=== PATIENT | female | born 1990 | race Caucasian/White ===

== ENCOUNTER 2016-03-17 08:32 | Day surgery (SDC) | payer OTHER ==
[2016-03-09 15:01] VITALS: BMI 45.6
[~2016-03-17 08:32] MED LIST: DEXAMETHASONE SOD PHOSPHATE 10 MG/ML 1 ML VIAL IV ONE; HEPARIN SODIUM,PORCINE 5,000 UNIT/ML 1 ML VIAL SQ ONE; HYDROmorphone 1 MG/ML 1 ML SYRINGE IVP PRN; LACTATED RINGERS 1,000 ML IV SCH; MIDAZOLAM 2 MG/2 ML VIAL IV PRN; SCOPOLAMINE 1.5MG/72HR PATCH TRANSDERM ONE; ceFAZolin 3 GM in SODIUM CHLORIDE 0.9% 100 ML IVPB ONE
[2016-03-17 09:00] VITALS: RESP 18
[2016-03-17] MEDS ORDERED: LIDOCAINE 1% 20 ML VIAL (10MG/ML) FOR IV START INTRADERMA ONE (09:16)
[2016-03-17] MEDS: ONDANSETRON 4 MG/2 ML VIAL IVP ONE ×2 (09:17→14:30)
--- NOTE | 2016-03-17 11:06 | P.GSHP ---
History of Present Illness H&P Date: 03/17/16 Chief Complaint: RUQ pain that radiates to the back Patient is a 26-year-old female who has intermittent right upper quadrant pain that radiates to the back. She was history of Christiano with continued reflux for which she's use Carafate and PPI does not improve there is no jaundice or icterus his her appetite is reduced because of the pain - Constitutional Constitutional: Denies chills, Denies fever - EENT Eyes: denies blurred vision, denies pain Ears, nose, mouth and throat: Denies headache, Denies sore throat - Cardiovascular Cardiovascular: Denies chest pain, Denies shortness of breath - Respiratory Respiratory: Denies cough, Denies 7 - Gastrointestinal Gastrointestinal: Reports as per HPI, Reports abdominal pain, Denies diarrhea, Denies nausea, Denies vomiting - Genitourinary (Female) Genitourinary: Denies dysuria, Denies hematuria Past Medical History Past Medical History: GERD/Reflux Additional Past Medical History / Comment(s): SEASONAL ALLERGIES. History of Any Multi-Drug Resistant Organisms: None Reported Past Surgical History: Tonsillectomy Additional Past Surgical History / Comment(s): CHRISTIANO FUNDOLOPLASTY Past Anesthesia/Blood Transfusion Reactions: Previous Problems w/ Anesthesia Additional Past Anesthesia/Blood Transfusion Reaction / Comment(s): WAS VERY SLOW COMING OUT OF ANESTHESIA AFTER CHRISTIANO Past Psychological History: Anxiety, Bipolar, Depression Smoking Status: Former smoker Past Alcohol Use History: None Reported Additional Past Alcohol Use History / Comment(s): Quit smoking 7 years ago. Smoked approx 1 pack per week. Smoked 2-3 years. Past Drug Use History: None Reported - Past Family History Mother Family Medical History: No Reported History Medications and Allergies Home Medications Medication Instructions Recorded Confirmed Type Loratadine [Loratadine] 10 mg PO DAILY 08/19/14 03/17/16 History Montelukast [Singulair] 10 mg PO DAILY 03/09/16 03/17/16 History clonazePAM [KlonoPIN] 0.5 mg PO BID 03/09/16 03/17/16 History lamoTRIgine [LaMICtal] 100 mg PO DAILY 03/09/16 03/17/16 History Allergies Allergy/AdvReac Type Severity Reaction Status Date / Time latex AdvReac Rash/Hives Verified 03/17/16 09:04 Surgical - Exam Vital Signs Temp Pulse Resp BP Pulse Ox 98.4 F 92 18 117/73 98 03/17/16 08:59 03/17/16 08:59 03/17/16 08:59 03/17/16 08:59 03/17/16 08:59 - General well developed, well nourished, no distress, obese - Eyes PERRL, normal ocular movement - ENT normal pinna, normal nares, normal mucosa, no hearing loss - Neck no masses - Respiratory normal expansion, normal respiratory effort - Cardiovascular Rhythm: regular - Abdomen Abdomen: soft, non tender, surgical scars - Integumentary no rash, no abnormal pigmentation - Neurologic no disoriented, no combative - Psychiatric oriented to time, oriented to person, oriented to place, speech is normal, memory intact Assessment and Plan (1) Chronic RUQ pain Narrative/Plan: The patient presents with chronic recurrent right upper quadrant pain that radiates to the back. The pain is intermittent and severe. Ejection fraction on the HIDA was 51% with reproduction of symptoms. She did have an umbilical study for which an MRCP was done and was unremarkable. Her ultrasound was normal. Due to continued right upper quadrant pain radiating to the back and fatty food intolerance have recommended a left scopic cholecystectomy for biliary dysfunction. The risks and benefits of the procedure were explained to her that there is up to an 80% chance of resolution of symptoms. She understands the risks benefits and is ready to proceed Status: Acute
[2016-03-17] MEDS ORDERED: PROPOFOL 10 MG/ML 20 ML VIAL IV ONE (11:19)
[2016-03-17] MEDS ORDERED: ROCURONIUM BROMIDE 10 MG/ML 10 ML VIAL IV ONE (11:19)
[2016-03-17] MEDS ORDERED: NEOSTIGMINE 1 MG/ML 10 ML VIAL ONE (11:19)
[2016-03-17] MEDS ORDERED: SUCCINYLCHOLINE CHLORIDE VIAL 200 MG/10 ML VIAL IV ONE (11:19)
[2016-03-17] MEDS ORDERED: LACTATED RINGERS 1,000 ML BAG IV ONE (11:19)
[2016-03-17] MEDS ORDERED: ceFAZolin 1,000 MG VIAL ONE (11:19)
[2016-03-17] MEDS ORDERED: LIDOCAINE 1% INJ 10MG/ML (20 ML MDV) ONE (11:19)
[2016-03-17] MEDS ORDERED: GLYCOPYRROLATE 0.2 MG/ML 2 ML VIAL ONE (11:19)
[2016-03-17] MEDS ORDERED: SODIUM CHLORIDE 0.9% 100 ML BAG ONE (11:19)
[2016-03-17] MEDS ORDERED: fentaNYL (PF) 50 MCG/ML 2 ML AMP ONE (11:19)
[2016-03-17] MEDS ORDERED: MIDAZOLAM 2 MG/2 ML VIAL ONE (11:19)
[2016-03-17] MEDS ORDERED: HYDROmorphone (PF) 1 MG/ML ONE (11:19)
[2016-03-17] MEDS ORDERED: BUPIVACAIN-EPI 0.25%-1:200,000 30 ML VIAL SQ ONE (11:51)
[2016-03-17] MEDS ORDERED: BUPIVACAIN-EPI 0.25%-1:200,000 30 ML VIAL IJ ONE (11:51)
[2016-03-17] MEDS ORDERED: LACTATED RINGERS 1,000 ML IV ONE ×2 (12:04)
--- NOTE | 2016-03-17 13:41 | P.OP ---
Date of Procedure: 03/17/16 Preoperative Diagnosis: Chronic right upper quadrant pain Postoperative Diagnosis: Chronic cholecystitis Procedure(s) Performed: Laparoscopic cholecystectomy Anesthesia: APOLONIA Surgeon: Robert Barnes Pathology: other Condition: stable Disposition: PACU Operative Findings: Severe chronic inflammation of the gallbladder and the infundibulum is twisted around the cystic duct. There was a short cystic duct Description of Procedure: The patient is a 26-year-old female who presented with epigastric and upper abdominal pain which localized in the right upper quadrant was tender with guarding in the right upper quadrant Clinical diagnosis of cholecystitis was made. The risks benefits and possible complications of the procedure were discussed in detail and informed consent was obtained. Patient was identified in the preop operating holding area questions were answered and she was taken back to the operating room where she was placed in the supine position. She was given general anesthesia with endotracheal intubation followed by the placement of an orogastric tube and a Elizondo catheter appropriate timeout was called the indication procedure ALLERGIES medications from her prophylaxis were all discussed. Abdomen is prepped and draped in the usual sterile surgical fashion supraumbilical region was infiltrated with quarter percent with local anesthesia and incision was made with 11 blade and Veress needle was introduced . I was unable to enter the abdomen with the help of the Veress needle therefore Optiview technique was used to enter the abdominal cavity through the left upper quadrant. Abdomen insufflated to 18 mmHg. Once that was done a 10 mm epigastric port and two 5 mm right upper quadrant ports were placed.the left upper quadrant 5 mm port was kept in place as well as another 5 mm port in the supraumbilical region. the gallbladder was retracted cephalad and superiorly.The fundus was retracted so as to make the Calot's triangle more visible. A liver retractor was also introduced since the gallbladder was significantly intrahepatic to help with retraction through the left upper quadrant the plan was opened and liver was pushed superiorly so as to open up the medial aspect of the gallbladder. There were dense inflammatory peritoneal adhesions and the gallbladder was distended. There was a redundant infundibulum that draped over and was adhesed around the cystic duct and artery. The adhesions were taken down with the help of blunt dissection and using some electrocautery, skeletonizing the cystic duct and the multiple branches of the cystic artery. Cystic duct was clipped proximally and distally followed by clipping of the branches of the cystic artery following which they were transected sharply with the help of the tish. The gallbladder was then taken off the gallbladder fossa with the help of electrocautery and placed in an Endo Catch bag and removed through the 10 m port site after dilating the port site with a Betsy. The port was replaced and the gallbladder fossa was inspected and hemostasis was secured with the help of electrocautery the abdomen was thoroughly irrigated and sucked dry. Jose M were noted to be in the appropriate position at this time to take procedure was terminated. the 10 mm port was removed and the port site was closed with the help of a Adriano Duque using 0 Vicryl.The Gas was shut off and all the 5 mm ports were removed. The abdomen was thoroughly desufflated. The remaining local anesthesia was infiltrated into the incisions and the incisions were closed with the help of 4-0 Monocryl abdominal applied and the incisions. The patient was extubated and taken to recovery room in stable condition . There were no complications.
[2016-03-17 14:04] VITALS: TEMP 97.4
[2016-03-17 15:42] VITALS: PULSE 97
[2016-03-17 16:08] VITALS: BP 111/61
== END 2016-03-17 17:09 | disposition home or self-care (01) ==
LOC: OR 08:32
PROVIDERS: ATTEND Surgery
DX: K81.1 Chronic cholecystitis (principal); K66.0 Peritoneal adhesions (postprocedural) (postinfection); Z87.891 Personal history of nicotine dependence; F31.9 Bipolar disorder, unspecified; F41.8 Other specified anxiety disorders; F32.9 Major depressive disorder, single episode, unspecified; Z79.899 Other long term (current) drug therapy; Z91.040 Latex allergy status
CPT/HCPCS: 47562; 81025; 88304; J2250; J0330; J1644; J1100; J2710; J2405; J0690; J2001; J3010; J1170; J2704

== ENCOUNTER 2017-08-05 10:37 | Emergency (ER) | payer OTHER ==
[2017-08-05 10:47] VITALS: BP 134/85; PULSE 98; RESP 18; TEMP 97.7
--- NOTE | 2017-08-05 11:16 | ED ---
General Adult HPI - General Chief complaint: Extremity Injury, Upper Stated complaint: fall, left shouler pain Time Seen by Provider: 08/05/17 10:49 Source: patient, RN notes reviewed Mode of arrival: ambulatory Limitations: no limitations - History of Present Illness Initial comments: Patient 27-year-old female presents emergency room today with chief complaint of a fall that occurred just prior to arrival. She doesn't that she fell when she walked outside slipping on a wet deck landing on the left shoulder. She does admit that she had injury proximal 6 months ago as well with similar injury. She states she's had difficulty with range of motion of the left shoulder since that fall initially. She states that since she's had very limited range of motion due to increased pain today in the left shoulder. States worse with any movement. Denies any head injury or loss conscious. Denies any other complaints. Patient denies any recent fever, chills, shortness of breath, chest pain, back pain, abdominal pain, nausea or vomiting, numbness or tingling, dysuria or hematuria, constipation or diarrhea, headaches or visual changes, or any other complaints. - Related Data Home Medications Medication Instructions Recorded Confirmed No Known Home Medications [No 08/05/17 08/05/17 Known Home Medications] Allergies Allergy/AdvReac Type Severity Reaction Status Date / Time latex AdvReac Rash/Hives Verified 08/05/17 10:43 Review of Systems ROS Statement: Those systems with pertinent positive or pertinent negative responses have been documented in the HPI. ROS Other: All systems not noted in ROS Statement are negative. Past Medical History Past Medical History: GERD/Reflux Additional Past Medical History / Comment(s): SEASONAL ALLERGIES. History of Any Multi-Drug Resistant Organisms: None Reported Past Surgical History: Adenoidectomy, Cholecystectomy, Tonsillectomy Additional Past Surgical History / Comment(s): CHRISTIANO FUNDOLOPLASTY Past Anesthesia/Blood Transfusion Reactions: Previous Problems w/ Anesthesia Additional Past Anesthesia/Blood Transfusion Reaction / Comment(s): WAS VERY SLOW COMING OUT OF ANESTHESIA AFTER CHRISTIANO Past Psychological History: Anxiety, Bipolar, Depression Smoking Status: Current every day smoker Past Alcohol Use History: None Reported Past Drug Use History: None Reported - Past Family History Mother Family Medical History: No Reported History General Exam - General Exam Comments Initial Comments: General: The patient is awake and alert, in no distress, and does not appear acutely ill. Neck: The neck is supple, there is no tenderness or JVD. Cardiovascular: There is a regular rate and rhythm. No murmur, rub or gallop is appreciated. Respiratory: Lungs are clear to auscultation, respirations are non-labored, breath sounds are equal. No wheezes, stridor, rales, or rhonchi. Musculoskeletal: Patient has full range of motion of left hand, wrist, elbow. No bony tenderness in these areas. It is tender palpation greater over the anterior aspect of left shoulder than the posterior. She is very limited range of motion of the shoulder due to pain. No tenderness to cervical, thoracic spine. No step-offs deformities appreciated. Mild tenderness mid shaft and laterally of the left clavicle on palpation. Radial pulse 2+. Neurological: A&O x 3. CN II-XII intact, There are no obvious motor or sensory deficits. Coordination appears grossly intact. Speech is normal. Skin: Skin is warm and dry and no rashes or lesions are noted. Psychiatric: Normal mood and affect. Limitations: no limitations Course Vital Signs 08/05/17 10:40 Temperature 97.7 F Pulse Rate 98 Respiratory 18 Rate Blood Pressure 134/85 O2 Sat by Pulse 99 Oximetry Medical Decision Making - Medical Decision Making Patient's x-rays reviewed are negative for any acute fracture dislocation. Results were discussed with the patient. Advised following up with the orthopedic doctor. Disposition Clinical Impression: Shoulder injury Disposition: HOME SELF-CARE Condition: Good Instructions: Rotator Cuff Injury (ED) Additional Instructions: Please use medication as discussed. Please follow-up with orthopedics over the next 2-5 days. Please return to emergency room if the symptoms increase or worsen or for any other concerns. Is patient prescribed a controlled substance at d/c from ED?: No Referrals: None,Stated [Primary Care Provider] - 1-2 days Shkaeel Ziegler DO [Doctor of Osteopathic Medicine] - 1-2 days Time of Disposition: 11:55
--- NOTE | 2017-08-05 11:34 | XR ---
EXAMINATION TYPE: XR clavicle LT, XR shoulder complete LT DATE OF EXAM: 08/05/2017 COMPARISON: 08/05/2017 HISTORY: Left clavicle pain after fall TECHNIQUE: 2 views of the left clavicle were obtained. 3 views of the left shoulder were obtained. FINDINGS: There is no acute fracture/dislocation evident in the left shoulder. The acromioclavicula r and glenohumeral joint spaces appear within normal limits. The visualized ribs are intact and unre markable. No evidence of acute fracture or dislocation of the left clavicle. IMPRESSION: There is no acute fracture or dislocation in the left shoulder or clavicle.
== END 2017-08-05 12:31 | disposition home or self-care (01) ==
LOC: EC 10:37
DX: S49.92XA Unspecified injury of left shoulder and upper arm, initial encounter (principal); F17.200 Nicotine dependence, unspecified, uncomplicated; Z91.040 Latex allergy status; W01.0XXA Fall on same level from slipping, tripping and stumbling without subsequent striking against object, initial encounter; Y93.01 Activity, walking, marching and hiking; Y92.89 Other specified places as the place of occurrence of the external cause
CPT/HCPCS: 99283

== ENCOUNTER 2017-08-27 00:12 | Emergency (ER) | payer OTHER ==
[2017-08-27 00:17] VITALS: BP 139/85; PULSE 112; RESP 16; TEMP 98.8
[2017-08-27] MEDS ORDERED: SULFAMETH-TMP DS STARTER PACK 2 TAB BTL PO STA (00:29)
--- NOTE | 2017-08-27 00:33 | ED ---
Skin/Abscess/FB HPI - General Chief complaint: Skin/Abscess/Foreign Body Stated complaint: Abscess Time Seen by Provider: 08/27/17 00:25 Source: patient, RN notes reviewed Mode of arrival: ambulatory Limitations: no limitations - History of Present Illness Initial comments: 27-year-old female presented from chief complaint of abscess towards her right thigh, buttocks region. It started 3 days ago and just started draining today when she states there is purulent drainage and foul order. Patient reports no fever no chills. Denies any pain in her rectum denies any pain with bowel movements. Patient states that she's had a history of these in the usually rupture and clear up either home. Patient has not taken any antibiotics. - Related Data Previous Rx's Medication Instructions Recorded Hydrocodone/Acetaminophen [[place] 1 tab PO Q6HR PRN #12 tab 08/27/17 5-325] Ibuprofen [Motrin] 600 mg PO Q8HR PRN #30 tab 08/27/17 Sulfamethox-Tmp 800-160Mg [Bactrim 1 each PO Q12HR #20 tab 08/27/17 Ds] Allergies Allergy/AdvReac Type Severity Reaction Status Date / Time No Known Allergies Allergy Verified 08/27/17 00:17 Review of Systems ROS Statement: Those systems with pertinent positive or pertinent negative responses have been documented in the HPI. ROS Other: All systems not noted in ROS Statement are negative. Past Medical History Past Medical History: GERD/Reflux Additional Past Medical History / Comment(s): SEASONAL ALLERGIES. History of Any Multi-Drug Resistant Organisms: None Reported Past Surgical History: Adenoidectomy, Cholecystectomy, Tonsillectomy Additional Past Surgical History / Comment(s): CHRISTIANO FUNDOLOPLASTY Past Anesthesia/Blood Transfusion Reactions: Previous Problems w/ Anesthesia Additional Past Anesthesia/Blood Transfusion Reaction / Comment(s): WAS VERY SLOW COMING OUT OF ANESTHESIA AFTER CHRISTIANO Past Psychological History: Anxiety, Bipolar Smoking Status: Current every day smoker Past Alcohol Use History: None Reported Past Drug Use History: None Reported - Past Family History Mother Family Medical History: No Reported History General Exam Limitations: no limitations General appearance: alert, in no apparent distress Head exam: Present: atraumatic, normocephalic, normal inspection Respiratory exam: Present: normal lung sounds bilaterally. Absent: respiratory distress, wheezes, rales, rhonchi, stridor Cardiovascular Exam: Present: regular rate, normal rhythm, normal heart sounds. Absent: systolic murmur, diastolic murmur, rubs, gallop, clicks Skin exam: Present: warm, dry, intact, normal color, other (Right thigh region there is firm area approximately 1 cm minimal erythema with an opening and drainage noted). Absent: rash Course Vital Signs 08/27/17 00:14 Temperature 98.8 F Pulse Rate 112 H Respiratory 16 Rate Blood Pressure 139/85 O2 Sat by Pulse 99 Oximetry Medical Decision Making - Medical Decision Making 27-year-old female presents for right thigh abscess. Patient has an open draining abscess at this time there is some area of tenderness and nonfluctuant area. Patient instructed to do warm compresses will be started on Bactrim and given a short prescription of pain medication. Disposition Clinical Impression: Abscess of right thigh Disposition: HOME SELF-CARE Condition: Stable Instructions: Abscess (ED) Additional Instructions: Please return to the Emergency Department if symptoms worsen or any other concerns. Prescriptions: Hydrocodone/Acetaminophen [[place] 5-325] 1 tab PO Q6HR PRN #12 tab PRN Reason: Pain Ibuprofen [Motrin] 600 mg PO Q8HR PRN #30 tab PRN Reason: Pain Sulfamethox-Tmp 800-160Mg [Bactrim Ds] 1 each PO Q12HR #20 tab Is patient prescribed a controlled substance at d/c from ED?: Yes When asked, does pt state using other controlled substances?: No If prescribed controlled substance>3 days was MAPS reviewed?: Prescribed <3 Days If opioid is for acute pain is fill amount 7 days or less?: Yes If Rx opioid, was Start Talking consent form obtained?: Yes Referrals: None,Stated [Primary Care Provider] - 1-2 days Leia Sewell MD [STAFF PHYSICIAN] - 1-2 days Time of Disposition: 00:33
== END 2017-08-27 00:47 | disposition home or self-care (01) ==
LOC: EC 00:12
DX: L02.415 Cutaneous abscess of right lower limb (principal); F17.200 Nicotine dependence, unspecified, uncomplicated
CPT/HCPCS: 99282

== ENCOUNTER → 2018-02-12 | Outpatient (CLI) | payer OTHER ==
--- NOTE | 2018-02-12 09:36 | CT ---
EXAMINATION TYPE: CT abdomen pelvis w con DATE OF EXAM: 02/12/2018 COMPARISON: 11/10/2015 HISTORY: incarcerated ventral hernia CT DLP: 2528.7 mGycm Automated exposure control for dose reduction was used. CONTRAST: CT scan of the abdomen pelvis is performed with IV Contrast, patient injected with 100 mL of Isovue 3 00. FINDINGS- LUNG BASES- No significant abnormality is appreciated. LIVER/GB-postcholecystectomy changes. PANCREAS- No gross abnormality is seen. SPLEEN- No gross abnormality is seen. ADRENALS- No gross abnormality is seen. KIDNEYS/BLADDER- no hydronephrosis nephrolithiasis or renal mass. BOWEL-postsurgical changes compatible the patient's reported history noted. No evidence of bowel obst ruction.. LYMPH NODES- No greater than 1cm abdominal or pelvic lymph nodes areappreciated. OSSEOUS STRUCTURES- No significant abnormality is seen. Slight curvature of the spine noted. OTHER- small fat-containing periumbilical hernia. Ovarian follicle or cysts incidentally noted. IMPRESSION- 1. Postoperative changes.
--- NOTE | 2018-02-12 10:42 | FL ---
EXAMINATION TYPE: FL barium swallow DATE OF EXAM: 02/12/2018 CLINICAL HISTORY: Reflux TECHNIQUE: A double contrast esophagram is performed utilizing air and barium. A total of 25 second s of fluoroscopic time was utilized during procedure. 13 images submitted. COMPARISON: None FINDINGS: The esophagus shows normal motility and emptying into the stomach. No evidence of hiatal h ernia or stricture noted. No significant gastroesophageal reflux was seen during real time performanc e of this study. IMPRESSION: No significant abnormality is seen to account for patient's symptoms.
== END | disposition home or self-care (01) ==
LOC: RADCTMAIN 06:43
PROVIDERS: ATTEND Surgery Plastic and Reconstructive Surgery
DX: K21.9 Gastro-esophageal reflux disease without esophagitis (principal); K43.6 Other and unspecified ventral hernia with obstruction, without gangrene; Z90.49 Acquired absence of other specified parts of digestive tract
CPT/HCPCS: 74220; 74177; Q9967

== ENCOUNTER 2018-04-13 13:43 | Inpatient (IN) | payer OTHER ==
[2018-04-13] MEDS ORDERED: IPRATROPIUM-ALBUTEROL 3 ML NEB INHALATION STA (14:01)
--- NOTE | 2018-04-13 14:24 | ED ---
SOB HPI - General Source: patient, RN notes reviewed Mode of arrival: ambulatory Limitations: no limitations <Gabe Rosales - Last Filed: 04/13/18 15:32> <Donavon Greene - Last Filed: 04/13/18 15:42> - General Chief Complaint: Shortness of Breath Stated Complaint: Pneumonia,syncope Time Seen by Provider: 04/13/18 13:49 - History of Present Illness Initial Comments: 28-year-old female sent emergency Department chief complaint cough congestion. Patient states that she's been short of breath last 4 days or so. Patient was seen by PCP and was given azithromycin for walking pneumonia. Patient has no history of asthma or COPD. Patient states that she's noticed that she's had some wheezing increased shortness of breath denies any leg pain, leg swelling no recent traveling. Denies any chest pain. Patient states that she felt very dizzy earlier. (Gabe Rosales) - Related Data Home Medications Medication Instructions Recorded Confirmed Azithromycin [Zithromax Z-pack] See Taper PO DAILY 04/13/18 04/13/18 Allergies Allergy/AdvReac Type Severity Reaction Status Date / Time No Known Allergies Allergy Verified 04/13/18 14:03 Review of Systems ROS Other: All systems not noted in ROS Statement are negative. <Gabe Rosales - Last Filed: 04/13/18 15:32> ROS Other: All systems not noted in ROS Statement are negative. <Donavon Greene - Last Filed: 04/13/18 15:42> ROS Statement: Those systems with pertinent positive or pertinent negative responses have been documented in the HPI. Past Medical History Past Medical History: GERD/Reflux Additional Past Medical History / Comment(s): SEASONAL ALLERGIES. History of Any Multi-Drug Resistant Organisms: None Reported Past Surgical History: Adenoidectomy, Cholecystectomy, Tonsillectomy Additional Past Surgical History / Comment(s): CHRISTIANO FUNDOLOPLASTY Past Anesthesia/Blood Transfusion Reactions: Previous Problems w/ Anesthesia Additional Past Anesthesia/Blood Transfusion Reaction / Comment(s): WAS VERY SLOW COMING OUT OF ANESTHESIA AFTER CHRISTIANO Past Psychological History: Anxiety, Bipolar Smoking Status: Current every day smoker Past Alcohol Use History: None Reported Past Drug Use History: None Reported - Past Family History Mother Family Medical History: No Reported History <Gabe Rosales - Last Filed: 04/13/18 15:32> General Exam Limitations: no limitations General appearance: alert, in no apparent distress Head exam: Present: atraumatic, normocephalic, normal inspection Eye exam: Present: normal appearance, PERRL, EOMI. Absent: scleral icterus, conjunctival injection, periorbital swelling ENT exam: Present: normal exam, mucous membranes moist Neck exam: Present: normal inspection. Absent: tenderness, meningismus, lymphadenopathy Respiratory exam: Present: wheezes. Absent: normal lung sounds bilaterally, respiratory distress, rales, rhonchi, stridor Cardiovascular Exam: Present: regular rate, normal rhythm, normal heart sounds. Absent: systolic murmur, diastolic murmur, rubs, gallop, clicks Neurological exam: Present: alert, oriented X3, CN II-XII intact Skin exam: Present: warm, dry, intact, normal color. Absent: rash <Gabe Rosales - Last Filed: 04/13/18 15:32> Course <Gabe Rosales - Last Filed: 04/13/18 15:32> <Donavon Greene - Last Filed: 04/13/18 15:42> Vital Signs 04/13/18 04/13/18 04/13/18 13:48 13:53 14:29 Temperature 99.0 F Pulse Rate 97 98 Respiratory 18 22 Rate Blood Pressure 149/87 O2 Sat by Pulse 98 Oximetry 04/13/18 14:37 Temperature Pulse Rate 92 Respiratory Rate Blood Pressure O2 Sat by Pulse Oximetry - Reevaluation(s) Reevaluation #1: 04/13/18 15:41 Patient reevaluated by myself, Dr. Greene. Patient resting comfortably in bed. Patient still feels short of breath and does have continued wheezing. Patient is updated on results. Case was discussed in detail with [facility], [place] physician, Dr. heck, who will admit covering for Dr. Orellana, who admits for Dr. Ngo. (Donavon Greene) Medical Decision Making <Gabe Rosales - Last Filed: 04/13/18 15:32> <Donavon Greene - Last Filed: 04/13/18 15:42> - Medical Decision Making 20-year-old female presents for cough congestion. Patient did have chest x-ray shows evidence of pneumonia. Patient has failed outpatient treatment for pneumonia will be admitted for IV advised, repeat treatments. (Gabe Rosales) Disposition <Gabe Rosales - Last Filed: 04/13/18 15:32> <Donavon Greene - Last Filed: 04/13/18 15:42> Clinical Impression: Pneumonia Disposition: ADMITTED IP TO THIS HOSP Condition: Stable Additional Instructions: Please return to the Emergency Department if symptoms worsen or any other concerns. Referrals: Sal Ngo MD [Primary Care Provider] - 1-2 days
--- NOTE | 2018-04-13 15:08 | XR ---
EXAMINATION TYPE: XR chest 2V DATE OF EXAM: 04/13/2018 COMPARISON: NONE HISTORY: Cough and shortness of breath TECHNIQUE: Frontal and lateral views of the chest are obtained. FINDINGS: Retrocardiac airspace disease is present. There is no pleural effusion or pneumothorax see n. The cardiac silhouette size is within normal limits. There is a spinal curvature, patient is rota amber. The osseous structures are intact. IMPRESSION: Findings compatible with probable left lower lobe pneumonia. Follow-up to resolution.
[2018-04-13] MEDS ORDERED: predniSONE 20 MG TAB PO STA (15:24)
[2018-04-13] MEDS ORDERED: ACETAMINOPHEN TAB 325 MG TAB PO STA (15:24)
[2018-04-13] MEDS ORDERED: cefTRIAXone 1,000 MG VIAL (IM USE) IM STA (15:24)
[2018-04-13] MEDS ORDERED: methylPREDNISolone SOD SUCCI 125 MG/2 ML VIAL IV STA (15:36)
[2018-04-13] MEDS ORDERED: AZITHROMYCIN 500 MG in SODIUM CHLORIDE 0.9% 250 ML IVPB STA ×2 (15:36→15:39)
[2018-04-13] MEDS ORDERED: PNEUMONIA PROTOCOL UTILIZED 1 EACH MISC PO PRN (15:39)
[2018-04-13 16:36] LABS: ALT 54 U/L (9-52); AST 39 U/L (14-36); Albumin 4.4 g/dL (3.5-5.0); Alkaline Phosphatase 99 U/L (38-126); Anion Gap 9 mmol/L; Blood Urea Nitrogen 11 mg/dL (7-17); Calcium 9.5 mg/dL (8.4-10.2); Carbon Dioxide 23 mmol/L (22-30); Chloride 105 mmol/L (98-107); Glucose 93 mg/dL (74-99); Sodium 137 mmol/L (137-145); Total Bilirubin 0.4 mg/dL (0.2-1.3); Total Protein 7.7 g/dL (6.3-8.2)
[2018-04-13 16:41] LABS: Basophils # (A) 0.1 k/uL (0-0.2); Basophils % (A) 1 %; Eosinophils # (A) 0.1 k/uL (0-0.7); Eosinophils % (A) 1 %; HCT 40.6 % (34.0-46.0); HGB 13.6 gm/dL (11.4-16.0); Lymphocytes # (A) 1.3 k/uL (1.0-4.8); Lymphocytes % (A) 21 %; MCH 29.2 pg (25.0-35.0); MCHC 33.5 g/dL (31.0-37.0); MCV 87.3 fL (80.0-100.0); Mean Platelet Volume 7.1; Monocytes # (A) 0.5 k/uL (0-1.0); Monocytes % (A) 8 %; Neutrophils # (A) 4.1 k/uL (1.3-7.7); Neutrophils % (A) 65 %; Platelet Count 277 k/uL (150-450); RBC 4.65 m/uL (3.80-5.40); RDW 14.1 % (11.5-15.5); WBC 6.3 k/uL (3.8-10.6)
[2018-04-13 17:02] VITALS: BMI 50.9
[2018-04-13] MEDS: IPRATROPIUM-ALBUTEROL 3 ML NEB INHALATION SCH ×2 (17:17→20:20)
[2018-04-13] MEDS ORDERED: NALOXONE 0.4 MG/ML 1 ML VIAL IV PRN (17:28)
--- NOTE | 2018-04-13 17:28 | P.HPIM ---
History of Present Illness H&P Date: 04/13/18 The patient is a 28-year-old female with no significant PMH who presented to the ED for 1 week of cough productive of yellow-brown phlegm, wheezing, shortness of breath, and chest tightness. The patient notes that her roommate had a cough for the week prior to the onset of her symptoms. The patient denied a history of asthma and notes that she has never had such symptoms before. She endorse an episode of subjective fever though denied abdominal pain , nausea, vomiting, diarrhea, recent travel, calf pain, lower extremity swelling , or headache. 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 In the ED, the patient underwent a conference workup WBC count 6.3, hemoglobin 13.6, platelets 277, creatinine 0.66. Influenza testing is pending. She underwent a chest x-ray showed a probable left lower lobe pneumonia. She received Solu-Medrol 125 mg once, azithromycin, ceftriaxone, and DuoNeb's. She is being admitted to the medicine service for community-acquired pneumonia with reactive bronchitis. Review of Systems Pertinent positives and negatives as discussed in HPI, a complete review of systems was performed and all other systems are negative. Past Medical History Past Medical History: GERD/Reflux Additional Past Medical History / Comment(s): SEASONAL ALLERGIES. hiatal hernia( sx done), "dx with narcalepsy but still nees more testing", eczema, in past- head injury(hit head on metal saftey bar of tractor) History of Any Multi-Drug Resistant Organisms: None Reported Past Surgical History: Adenoidectomy, Cholecystectomy, Tonsillectomy Additional Past Surgical History / Comment(s): CHRISTIANO FUNDOLOPLASTY, egd Past Anesthesia/Blood Transfusion Reactions: Previous Problems w/ Anesthesia Additional Past Anesthesia/Blood Transfusion Reaction / Comment(s): WAS VERY SLOW COMING OUT OF ANESTHESIA AFTER CHRISTIANO Smoking Status: Light tobacco smoker - Past Family History Father Family Medical History: Myocardial Infarction (CT) Additional Family Medical History / Comment(s): gm had ovarian cancer Mother Family Medical History: Thyroid Disorder Additional Family Medical History / Comment(s): scoliosis. mom's sister had breast cancer Medications and Allergies Home Medications Medication Instructions Recorded Confirmed Type Azithromycin [Zithromax Z-pack] See Taper PO DAILY 04/13/18 04/13/18 History Allergies Allergy/AdvReac Type Severity Reaction Status Date / Time No Known Allergies Allergy Verified 04/13/18 14:03 Physical Exam Vitals: Vital Signs Temp Pulse Resp BP Pulse Ox 04/13/18 17:04 98.2 F 85 18 126/97 100 04/13/18 16:45 98.2 F 04/13/18 15:48 98.2 F 04/13/18 15:45 85 18 126/97 100 04/13/18 14:37 92 04/13/18 14:29 98 04/13/18 13:53 22 04/13/18 13:48 99.0 F 97 18 149/87 98 Intake and Output 04/13/18 04/13/18 04/13/18 06:59 14:59 22:59 Intake Total 150 Balance 150 Intake: Amount of Fluid Infused ( 150 ml) Other: Weight 151.908 kg General: [non toxic], [no distress], [appears at stated age], morbidly obese Derm: [no unusual rashes/lesions] [no unusual ecchymoses], [warm], [dry] Head: [atraumatic], [normocephalic], [symmetric] Eyes: [EOMI], [no lid lag], [anicteric sclera], [pupils equal round reactive to light] ENT: [Nose and ears atraumatic], [no thrush], [no pharyngeal erythema] Neck: [No thyromegaly], [no cervical lymphadenopathy], [trachea midline], [ supple] Mouth: [no lip lesion], [mucus membranes moist] Cardiovascular: [S1S2 reg], [no murmur], [positive posterior tibial pulse bilateral], [no edema], [capillary refill less than 2 seconds] Lungs: Expiratory wheezing diffusely, [no rhonchi, no rales] , [no accessory muscle use] Abdominal: [soft], [ nontender to palpation], [no guarding], [no appreciable organomegaly], [normal bowel sounds] Ext: [no gross muscle atrophy], [muscle strength 5 out of 5 in all 4 extremities grossly], [no contractures], Neuro: [ CN II-XI grossly intact], [light touch intact all 4 extremities], [ finger to nose within normal limits], Psych: [Alert], [oriented], [appropriate affect] Results CBC & Chem 7: 04/13/18 16:17 04/13/18 16:17 Labs: Abnormal Lab Results - Last 24 Hours (Table) 04/13/18 Range/Units 16:17 AST 39 H (14-36) U/L ALT 54 H (9-52) U/L Assessment and Plan Plan: Reactive bronchitis in setting of community acquired pneumonia -Continue with IV ceftriaxone and azithromycin -Continue with IV fluids -DuoNeb, oral prednisone -Follow up influenza testing -Follow-up blood and sputum cultures Severe morbid obesity -Will need outpatient dietitian follow-up DVT//GI prophylaxis -Heparin -Protonix The patient is admitted with an anticipated greater than 2 midnight stay for evaluation of community for pneumonia. CODE STATUS: Full code Discussed with: Patient Anticipated discharge date: 04/15/[address]: Home A total of 45 minutes was spent on the care of this complex patient more than 50 % of the time was spent in counseling and care coordination.
[2018-04-13] MEDS: SODIUM CHLORIDE 0.9% 1,000 ML IV SCH (17:53)
[2018-04-14] MEDS: ALBUTEROL NEBULIZED 2.5 MG/3 ML INHALATION PRN ×3 (00:55→23:38)
[2018-04-14] MEDS: SODIUM CHLORIDE 0.9% 1,000 ML IV SCH ×2 (05:11→14:23)
[2018-04-14] MEDS: IPRATROPIUM-ALBUTEROL 3 ML NEB INHALATION SCH ×4 (07:00→19:45)
--- NOTE | 2018-04-14 07:04 | XR ---
EXAMINATION TYPE: XR chest 2V DATE OF EXAM: 04/14/2018 COMPARISON: Chest x-ray from yesterday. HISTORY: Pneumonia progress study. TECHNIQUE: Frontal and lateral views of the chest are obtained. FINDINGS: Evaluation slightly suboptimal due to patient's large body habitus. Persistent retrocardia c opacity is identified. There is no new focal air space opacity, pleural effusion, or pneumothorax s een. The cardiac silhouette size is upper limits of normal. S-shaped scoliosis is redemonstrated. Ch olecystectomy clips are noted on lateral view. IMPRESSION: Suboptimal study with persistent retrocardiac acute infiltrate and/or atelectasis. No ne w infiltrate is seen.
[2018-04-14] MEDS: predniSONE 20 MG TAB PO SCH (08:35)
[2018-04-14] MEDS: ENOXAPARIN 40 MG/0.4 ML SYRINGE SQ SCH (08:35)
[2018-04-14] MEDS: AZITHROMYCIN 500 MG TAB PO SCH (08:35)
[2018-04-14 11:34] LABS: Basophils % (A) 0 %; Eosinophils % (A) 0 %; HCT 38.5 % (34.0-46.0); HGB 12.8 gm/dL (11.4-16.0); Lymphocytes # (A) 0.9 k/uL (1.0-4.8); Lymphocytes % (A) 7 %; MCH 28.9 pg (25.0-35.0); MCHC 33.2 g/dL (31.0-37.0); Mean Platelet Volume 7.7; Monocytes # (A) 0.6 k/uL (0-1.0); Monocytes % (A) 5 %; Neutrophils # (A) 10.7 k/uL (1.3-7.7); Neutrophils % (A) 87 %; Platelet Count 295 k/uL (150-450); RBC 4.42 m/uL (3.80-5.40); RDW 14.2 % (11.5-15.5); WBC 12.3 k/uL (3.8-10.6)
--- NOTE | 2018-04-14 15:15 | P.PN ---
Subjective Progress Note Date: 04/14/18 Patient was seen and examined the bedside. She was that her breathing is improved from yesterday though she continues to have wheezing. She otherwise denied fever, chills, nausea, vomiting, chest pain, or dizziness. Objective - Vital Signs Vital signs: Vital Signs Temp 98.3 F 04/14/18 06:02 Pulse 94 04/14/18 11:13 Resp 18 04/14/18 06:02 BP 143/70 04/14/18 06:02 Pulse Ox 96 04/14/18 06:02 Intake & Output 04/13/18 04/14/18 04/14/18 18:59 06:59 18:59 Intake Total 150 320 Balance 150 320 Weight 151.908 kg Intake: Amount of Fluid Infused ( 150 ml) Oral 320 Other: Voiding Method Toilet # Voids 1 - Exam General: Non-toxic, in no acute distress, appears stated age, morbidly obese HEENT: NC/AT, anicteric sclerae, moist conjunctiva, no lid-lag, PERRLA Cardiovascular: S1/S2 wnl, no murmurs, rubs, or gallops Lungs: Diffuse wheezing bilaterally, normal respiratory effort, no accessory muscle use Abdominal: Soft, non-tender, non-distended, no guarding, rebound, or rigidity Skin: Warm, dry Extremities: No edema or contractures Psychiatric: Alert and oriented to person, place and time, appropriate affect Neuro: CN II-XII grossly intact, Strength 5/5 in all 4 extremities, Speech intact, Sensation to light touch grossly intact throughout - Labs CBC & Chem 7: 04/14/18 11:14 04/13/18 16:17 Labs: Abnormal Lab Results - Last 24 Hours (Table) 04/13/18 04/14/18 Range/Units 16:17 11:14 WBC 12.3 H (3.8-10.6) k/uL Neutrophils # 10.7 H (1.3-7.7) k/uL Lymphocytes # 0.9 L (1.0-4.8) k/uL AST 39 H (14-36) U/L ALT 54 H (9-52) U/L Assessment and Plan Plan: Reactive airway disease in setting of community acquired pneumonia -Continue with IV ceftriaxone and azithromycin -Continue with IV fluids -DuoNeb, oral prednisone -Influenza negative -Follow-up blood and sputum cultures Severe morbid obesity -Will need outpatient dietitian follow-up DVT//GI prophylaxis -Heparin -Protonix The patient is admitted with an anticipated greater than 2 midnight stay for evaluation of community for pneumonia. CODE STATUS: Full code Discussed with: Patient Anticipated discharge date: 04/15/[address]: Home A total of 45 minutes was spent on the care of this complex patient more than 50 % of the time was spent in counseling and care coordination.
[2018-04-14] MEDS: MELATONIN 3 MG TABLET PO SCH (23:27)
[2018-04-15] MEDS: SODIUM CHLORIDE 0.9% 1,000 ML IV SCH ×3 (04:39→22:25)
[2018-04-15] MEDS: ENOXAPARIN 40 MG/0.4 ML SYRINGE SQ SCH (07:29)
[2018-04-15] MEDS: AZITHROMYCIN 500 MG TAB PO SCH (07:29)
[2018-04-15] MEDS: IPRATROPIUM-ALBUTEROL 3 ML NEB INHALATION SCH ×4 (07:29→20:42)
[2018-04-15] MEDS: predniSONE 20 MG TAB PO SCH (07:29)
--- NOTE | 2018-04-15 19:38 | P.PN ---
Subjective Progress Note Date: 04/15/18 Patient was seen and examined the bedside. She was that her breathing continues to improve though she feels that she is not back at her baseline as of yet. She denied chest pain, nausea, vomiting, fever, or chills. She continues to have some wheezing Objective - Vital Signs Vital signs: Vital Signs Temp 98.6 F 04/15/18 14:28 Pulse 113 H 04/15/18 17:04 Resp 18 04/15/18 14:28 BP 127/71 04/15/18 14:28 Pulse Ox 98 04/15/18 16:55 Intake & Output 04/15/18 04/15/18 04/16/18 06:59 18:59 06:59 Intake Total 300 Balance 300 Intake: Oral 300 Other: # Voids 1 3 - Exam General: Non-toxic, in no acute distress, appears stated age, morbidly obese HEENT: NC/AT, anicteric sclerae, moist conjunctiva, no lid-lag, PERRLA Cardiovascular: S1/S2 wnl, no murmurs, rubs, or gallops Lungs: End expiratory wheezing with some scattered coarse breath sounds, normal respiratory effort, no accessory muscle use Abdominal: Soft, non-tender, non-distended, no guarding, rebound, or rigidity Skin: Warm, dry Extremities: No edema or contractures Psychiatric: Alert and oriented to person, place and time, appropriate affect Neuro: CN II-XII grossly intact, Strength 5/5 in all 4 extremities, Speech intact, Sensation to light touch grossly intact throughout - Labs CBC & Chem 7: 04/14/18 11:14 04/13/18 16:17 Labs: Microbiology - Last 24 Hours (Table) 04/13/18 16:27 Blood Culture - Preliminary Blood No Growth after 48 hours 04/14/18 16:03 Gram Stain - Final Gastric Aspirate Sputum Culture - Final Assessment and Plan Plan: Reactive airway disease in setting of community acquired pneumonia -Continue with IV ceftriaxone and azithromycin -Continue with IV fluids -DuoNeb, oral prednisone -Influenza negative -Follow-up blood and sputum cultures Severe morbid obesity -Will need outpatient dietitian follow-up DVT//GI prophylaxis -Heparin -No indication for GI prophylaxis Discussed with: Patient Anticipated discharge date: 04/16/[address]: Home A total of 35 minutes was spent on the care of this complex patient more than 50 % of the time was spent in counseling and care coordination.
[2018-04-15] MEDS: methylPREDNISolone SOD SUCCI 125 MG/2 ML VIAL IV SCH (21:23)
[2018-04-15] MEDS: MELATONIN 3 MG TABLET PO SCH (21:24)
[2018-04-15] MEDS: ALBUTEROL NEBULIZED 2.5 MG/3 ML INHALATION PRN (23:56)
[2018-04-16] MEDS: SODIUM CHLORIDE 0.9% 1,000 ML IV SCH (05:34)
[2018-04-16] MEDS: methylPREDNISolone SOD SUCCI 125 MG/2 ML VIAL IV SCH ×3 (06:30→11:18)
[2018-04-16 07:43] LABS: HCT 39.3 % (34.0-46.0); HGB 12.9 gm/dL (11.4-16.0); MCH 28.9 pg (25.0-35.0); MCHC 32.8 g/dL (31.0-37.0); Platelet Count 335 k/uL (150-450); RBC 4.47 m/uL (3.80-5.40); RDW 14.2 % (11.5-15.5); WBC 12.8 k/uL (3.8-10.6)
[2018-04-16] MEDS: AZITHROMYCIN 500 MG TAB PO SCH (07:57)
[2018-04-16] MEDS: ENOXAPARIN 40 MG/0.4 ML SYRINGE SQ SCH (07:57)
[2018-04-16] MEDS: IPRATROPIUM-ALBUTEROL 3 ML NEB INHALATION SCH ×4 (08:04→19:56)
[2018-04-16] MEDS ORDERED: ACETAMINOPHEN TAB 325 MG TAB PO PRN (10:26)
--- NOTE | 2018-04-16 10:35 | XR ---
EXAMINATION TYPE: XR chest 1V portable DATE OF EXAM: 04/16/2018 COMPARISON: 04/14/2018 HISTORY: Cough possible pneumonia TECHNIQUE: Single frontal view of the chest is obtained. FINDINGS: Heart is prominent. No pneumothorax or pleural effusion. Limited inspiration. Subsegmental changes medial aspect right lower lobe. IMPRESSION: Right basilar subsegmental atelectasis or infiltrate.
[2018-04-16 11:54] LABS: Glucose,Whole Blood 122 mg/dL (75-99)
[2018-04-16] MEDS: INSULIN ASPART 100 UNIT/ML 1 ML 10 ML VIAL SQ SCH ×3 (12:22→21:39)
[2018-04-16 17:02] LABS: Glucose,Whole Blood 122 mg/dL (75-99)
[2018-04-16 20:44] LABS: Glucose,Whole Blood 141 mg/dL (75-99)
[2018-04-16] MEDS: methylPREDNISolone SOD SUCCI 40 MG/ML 1 ML VIAL IV SCH (21:28)
[2018-04-16] MEDS: MELATONIN 3 MG TABLET PO SCH (21:30)
[2018-04-17 07:36] LABS: Glucose,Whole Blood 109 mg/dL (75-99)
--- NOTE | 2018-04-17 07:46 | PN ---
PROGRESS NOTE DATE OF SERVICE: 04/16/2018 PRESENTING COMPLAINT: Cough. INTERVAL HISTORY: Patient admitted with pneumonia and secondary bronchospasm. Breathing is getting better. Did tolerate a diet. Have a bowel movement. Up to go to the bathroom. Wheezing is improved. Some yellow sputum is still present. REVIEW OF SYSTEMS: Done for constitutional, cardiovascular, GI, pulmonary; relevant findings as above. CURRENT MEDICATIONS: Current medications are reviewed that include IV ceftriaxone and Zithromax. PHYSICAL EXAMINATION: On examination, temperature 98.9, pulse 103, respiration 20, blood pressure 129/67, pulse ox 93% on room air. GENERAL APPEARANCE: Lying in bed, awake, not in distress. EYES: Pupils equal. Conjunctivae normal. NECK: JVD unable to assess. Mass not palpable. RESPIRATORY: Effort increased. LUNGS: Minimal wheezing. CARDIOVASCULAR: First and second sounds normal. No edema. ABDOMEN: Soft, nontender. Liver and spleen not palpable. PSYCHIATRY: Alert and oriented x3. Mood and affect normal. INVESTIGATIONS: Accu-Cheks are noted. ASSESSMENT: 1. Right lower lobe pneumonia with clinical improvement. 2. Secondary bronchospasm secondary to above. 3. Morbid obesity, body mass index 50.9. 4. Bipolar disorder, controlled. 5. Hyperglycemia secondary to steroids, not diabetic. PLAN: Will cut back on patient's Solu-Medrol. Encouraged to ambulate. Patient is clinically doing much better. Should be able to switch over to oral antibiotics tomorrow and should be able to get discharged. Care was discussed with the patient. MMODL / IJN: [id number] /
[2018-04-17] MEDS: INSULIN ASPART 100 UNIT/ML 1 ML 10 ML VIAL SQ SCH ×3 (09:04→17:41)
[2018-04-17] MEDS: AZITHROMYCIN 500 MG TAB PO SCH (09:24)
[2018-04-17] MEDS: methylPREDNISolone SOD SUCCI 40 MG/ML 1 ML VIAL IV SCH (09:24)
[2018-04-17] MEDS: ENOXAPARIN 40 MG/0.4 ML SYRINGE SQ SCH (09:24)
[2018-04-17] MEDS: IPRATROPIUM-ALBUTEROL 3 ML NEB INHALATION SCH ×3 (09:53→16:14)
[2018-04-17 12:00] LABS: Glucose,Whole Blood 98 mg/dL (75-99)
[2018-04-17 15:12] VITALS: BP 135/83; RESP 22; TEMP 98.6
[2018-04-17 16:17] VITALS: PULSE 100
[2018-04-17 17:20] LABS: Glucose,Whole Blood 122 mg/dL (75-99)
--- NOTE | 2018-04-18 07:11 | DS ---
DISCHARGE SUMMARY DATE OF ADMISSION: 04/13/2018 DATE OF DISCHARGE: 04/17/2018 FINAL DIAGNOSES: 1. Right lower lobe pneumonia, present on admission. 2. Secondary bronchospasm secondary to pneumonia. 3. Morbid obesity, body mass index 50.9. 4. Bipolar disorder, controlled. 5. Hyperglycemia secondary to steroids, not diabetic. HOSPITAL COURSE: This patient presented with pneumonia and secondary bronchospasm. Doing well with antibiotics. Doing much better today. PHYSICAL EXAMINATION: On examination, afebrile, pulse 99, respiration 22, blood pressure 135/83, pulse ox 95% on room air. LUNGS: Improved air entry. INVESTIGATION: Accu-Cheks are noted. The patient doing much better, tolerating a diet. DISCHARGE MEDICATIONS: 1. Ventolin HFA 1 to 2 puffs q.6 p.r.n. 2. Ceftin 500 mg b.i.d. 10 tablets. 3. Prednisone taper. The patient may return to work on 04/21/2018. Follow up with Dr. Ngo in 3 days. MMODL / IJN: [id number] /
== END 2018-04-17 17:41 | disposition home or self-care (01) | DRG 194 ==
LOC: EC 13:43 → 4MS4W 15:42
PROVIDERS: ADMIT Hospitalist; ATTEND Hospitalist
DX: J18.9 Pneumonia, unspecified organism (principal); Z68.43 Body mass index [BMI] 50.0-59.9, adult; F17.210 Nicotine dependence, cigarettes, uncomplicated; E66.01 Morbid (severe) obesity due to excess calories; F31.9 Bipolar disorder, unspecified; J98.01 Acute bronchospasm; J40 Bronchitis, not specified as acute or chronic; K21.9 Gastro-esophageal reflux disease without esophagitis; T38.0X5A Adverse effect of glucocorticoids and synthetic analogues, initial encounter; Z80.3 Family history of malignant neoplasm of breast; Z80.41 Family history of malignant neoplasm of ovary; Z82.49 Family history of ischemic heart disease and other diseases of the circulatory system; Z90.49 Acquired absence of other specified parts of digestive tract; R73.9 Hyperglycemia, unspecified
CPT/HCPCS: 71045; 71046; 80053; 85025; 85027; 87040; 87070; 87205; 87502; 94640; 94760; 96365; 96375; 99285

== ENCOUNTER 2018-08-25 16:20 | Emergency (ER) | payer OTHER ==
[2018-08-25 16:24] VITALS: RESP 18; TEMP 98.4
[2018-08-25] MEDS ORDERED: ACET/COD 300 MG/30 MG STARTER PACK 6 TAB BTL PO STA (17:38)
[2018-08-25] MEDS ORDERED: KETOROLAC 60 MG/2 ML VIAL IM STA (17:38)
[2018-08-25] MEDS ORDERED: Acetaminophen-Codeine 300-30mg TAB PO STA (17:38)
--- NOTE | 2018-08-25 17:54 | ED ---
Lower Extremity Injury HPI - General Chief Complaint: Extremity Injury, Lower Stated Complaint: Leg injury/fell though pool deck Time Seen by Provider: 08/25/18 16:51 Source: patient, EMS, RN notes reviewed, old records reviewed Mode of arrival: EMS Limitations: no limitations - History of Present Illness Initial Comments: This is a 20-year-old female the ER for evaluation. She presents status post fall with leg injury. Patient was walking on a deck in the legs and the wood gave out treat her left leg to go into the deck itself about just past the knee. Patient states the pain swelling is severe low platelets is having difficulty with ambulation she is able to move without difficulty side for pain. She does have some significant swelling. Patient denies any other injury or traumatic injury. MD Complaint: thigh injury, leg injury -: hour(s) (All left lower) Injury: Thigh: Left, Leg: Left, Knee: Left Place: home Severity: mild Severity scale (1-10): 3 Improves With: nothing Worsens With: nothing Context: fall Associated Symptoms: swelling, numbness, able to partially bear weight - Related Data Home Medications Medication Instructions Recorded Confirmed No Known Home Medications 08/25/18 08/25/18 Allergies Allergy/AdvReac Type Severity Reaction Status Date / Time No Known Allergies Allergy Verified 08/25/18 17:44 Review of Systems ROS Statement: Those systems with pertinent positive or pertinent negative responses have been documented in the HPI. ROS Other: All systems not noted in ROS Statement are negative. Past Medical History Past Medical History: GERD/Reflux Additional Past Medical History / Comment(s): SEASONAL ALLERGIES. hiatal hernia(sx done), "dx with narcalepsy but still nees more testing", eczema, in past-head injury(hit head on metal saftey bar of tractor) History of Any Multi-Drug Resistant Organisms: None Reported Past Surgical History: Adenoidectomy, Cholecystectomy, Tonsillectomy Additional Past Surgical History / Comment(s): CHRISTIANO FUNDOLOPLASTY, egd Past Anesthesia/Blood Transfusion Reactions: Previous Problems w/ Anesthesia Additional Past Anesthesia/Blood Transfusion Reaction / Comment(s): WAS VERY SLOW COMING OUT OF ANESTHESIA AFTER CHRISTIANO Past Psychological History: Anxiety, Bipolar Smoking Status: Current every day smoker Past Alcohol Use History: None Reported Past Drug Use History: None Reported - Past Family History Father Family Medical History: Myocardial Infarction ([place]) Additional Family Medical History / Comment(s): gm had ovarian cancer Mother Family Medical History: Thyroid Disorder Additional Family Medical History / Comment(s): scoliosis. mom's sister had breast cancer General Exam - General Exam Comments Initial Comments: Left lower Shorty swelling and edema about level of knee mild abrasion to medial aspect of his left leg. No bony tenderness Limitations: no limitations General appearance: alert, in no apparent distress Head exam: Present: atraumatic, normocephalic, normal inspection Eye exam: Present: normal appearance, PERRL, EOMI. Absent: scleral icterus, conjunctival injection, periorbital swelling ENT exam: Present: normal exam, mucous membranes moist Neck exam: Present: normal inspection. Absent: tenderness, meningismus, lymphadenopathy Respiratory exam: Present: normal lung sounds bilaterally. Absent: respiratory distress, wheezes, rales, rhonchi, stridor Cardiovascular Exam: Present: regular rate, normal rhythm, normal heart sounds. Absent: systolic murmur, diastolic murmur, rubs, gallop, clicks GI/Abdominal exam: Present: soft, normal bowel sounds. Absent: distended, tenderness, guarding, rebound, rigid Extremities exam: Present: normal inspection, full ROM, normal capillary refill. Absent: tenderness, pedal edema, joint swelling, calf tenderness Back exam: Present: normal inspection Neurological exam: Present: alert, oriented X3, CN II-XII intact Psychiatric exam: Present: normal affect, normal mood Skin exam: Present: warm, dry, intact, normal color. Absent: rash Course Vital Signs 08/25/18 16:22 Temperature 98.4 F Pulse Rate 100 Respiratory 18 Rate Blood Pressure 125/89 O2 Sat by Pulse 100 Oximetry - Reevaluation(s) Reevaluation #1: 08/25/18 18:05 Medical records reviewed Reevaluation #2: 08/25/18 18:05 Pain is controlled Reevaluation #3: 08/25/18 18:05 Patient's able daily without difficulty Medical Decision Making - Medical Decision Making 20 female the ER with left lower extremity pain. Patient from falling into a deck. Lung of left lower extremity x-rays are negative pain is controlled and patient can be discharged to continue Motrin Tylenol at home - Radiology Data Radiology results: report reviewed (X-ray left knee left tibia-fibula negative for traumatic injury), image reviewed Disposition Clinical Impression: Contusion of left leg, Fall Disposition: HOME SELF-CARE Condition: Good Instructions (If sedation given, give patient instructions): Leg Pain (ED), Knee Pain (ED) Is patient prescribed a controlled substance at d/c from ED?: No Referrals: Sal Ngo MD [Primary Care Provider] - 1-2 days
[2018-08-25 18:15] VITALS: BP 129/80; PULSE 77
--- NOTE | 2018-08-25 18:18 | XR ---
EXAMINATION TYPE: XR knee complete 3 views LT, XR tibia fibula 2 views LT DATE OF EXAM: 08/25/2018 COMPARISON: NONE HISTORY: 28-year-old female with pain after fall through deck FINDINGS: Left knee: No acute fracture, subluxation, or dislocation. No significant joint effusion. Extensor mechanism is intact. Tibia/fibula: 5 mm ossific density below the medial malleolus has a corticated appearance suggesting sequela of old injury. Otherwise, no acute fracture. IMPRESSION: 1. Left knee: No acute osseous abnormality seen. 2. Left tibia/fibula: A 5 mm bone density below the medial malleolus appears corticated suggesting se quela of remote injury. Correlate for any pinpoint tenderness here. Otherwise, no acute osseous abnor mality seen.
== END 2018-08-25 18:41 | disposition home or self-care (01) ==
LOC: EC 16:20
DX: S80.12XA Contusion of left lower leg, initial encounter (principal); F17.200 Nicotine dependence, unspecified, uncomplicated; W19.XXXA Unspecified fall, initial encounter; Y93.01 Activity, walking, marching and hiking
CPT/HCPCS: 73590; 73562; 99284; 96372; J1885

== ENCOUNTER 2019-05-22 14:51 | Emergency (ER) | payer OTHER ==
[2019-05-22 15:05] VITALS: BP 154/91; PULSE 102; RESP 19; TEMP 98.4
[2019-05-22 15:44] LABS: Appearance,Urine Clear (Clear); Bacteria,Urine Rare /hpf; Bilirubin,Urine Negative (Negative); Blood,Urine Moderate (Negative); Color,Urine Dark Yellow; Glucose,Urine (UA) Negative (Negative); Ketones,Urine Negative (Negative); Leukocyte Esterase,Urine Small (Negative); Mucus,Urine Occasional /hpf; Nitrite,Urine Negative (Negative); PH, Urine 6.5 (5.0-8.0); Protein,Urine 1+ (Negative); RBC,Urine >182 /hpf (0-5); Squamous Epithelial Cell,Urine 3 /hpf (0-4); WBC,Urine 13 /hpf (0-5)
--- NOTE | 2019-05-22 15:54 | ED ---
Female Urogenital HPI - General Chief complaint: Urogenital Stated complaint: back pain Time Seen by Provider: 05/22/19 15:27 Source: patient Mode of arrival: ambulatory Limitations: no limitations - History of Present Illness Initial comments: Patient is a 29-year-old female presenting to the emergency Department with complaints of right-sided low back pain as well as urinary frequency, dysuria 4 days. Patient states she attempted to take [id number] medications for possible UTI. Her symptoms have persisted. She denies any fever, chills, v omiting. She states she has had mild nausea. She denies history of kidney stones. She states the pain in her back is nonradiating and has been consistent. There are no alleviating factors. There have been no traumas. She is does not normally have low back pain. She denies being at this time. She denies any concern for STDs. She has no other complaints at this time. Upon arrival to the ER, her vital signs are stable. Last Menstrual Period: 04/23/19 - Related Data Previous Rx's Medication Instructions Recorded Cephalexin [Keflex] 500 mg PO BID 5 Days #10 cap 05/22/19 Allergies Allergy/AdvReac Type Severity Reaction Status Date / Time latex Allergy Rash/Hives Verified 05/22/19 15:05 Review of Systems ROS Statement: Those systems with pertinent positive or pertinent negative responses have been documented in the HPI. ROS Other: All systems not noted in ROS Statement are negative. Past Medical History Past Medical History: GERD/Reflux Additional Past Medical History / Comment(s): SEASONAL ALLERGIES. hiatal hernia(sx done), "dx with narcalepsy but still nees more testing", eczema, in past-head injury(hit head on metal saftey bar of tractor) History of Any Multi-Drug Resistant Organisms: None Reported Past Surgical History: Adenoidectomy, Cholecystectomy, Tonsillectomy Additional Past Surgical History / Comment(s): CHRISTIANO FUNDOLOPLASTY, egd Past Anesthesia/Blood Transfusion Reactions: Previous Problems w/ Anesthesia Additional Past Anesthesia/Blood Transfusion Reaction / Comment(s): WAS VERY SLOW COMING OUT OF ANESTHESIA AFTER CHRISTIANO Past Psychological History: Anxiety, Bipolar Smoking Status: Former smoker Past Alcohol Use History: None Reported Past Drug Use History: None Reported - Past Family History Father Family Medical History: Myocardial Infarction ([place]) Additional Family Medical History / Comment(s): gm had ovarian cancer Mother Family Medical History: Thyroid Disorder Additional Family Medical History / Comment(s): scoliosis. mom's sister had breast cancer General Exam - General Exam Comments Initial Comments: GENERAL: Well-appearing, well-nourished and in no acute distress. HEAD: Atraumatic, normocephalic. EYES: Pupils equal round and reactive to light, extraocular movements intact, sclera anicteric, conjunctiva are normal. ENT: TMs normal, nares patent, oropharynx clear without exudates. Moist mucous membranes. NECK: Normal range of motion, supple without lymphadenopathy or JVD. LUNGS: Breath sounds clear to auscultation bilaterally and equal. No wheezes rales or rhonchi. HEART: Regular rate and rhythm without murmurs, rubs or gallops. ABDOMEN: Soft, nontender, normoactive bowel sounds. No guarding, no rebound. No masses appreciated. : Deferred EXTREMITIES: Normal range of motion, no pitting or edema. No clubbing or cyanosis. Mild right lower back soreness with palpation. Patient has full trunk range of motion. No right flank pain. NEUROLOGICAL: Normal speech, normal gait. PSYCH: Normal mood, normal affect. SKIN: Warm, Dry, normal turgor, no rashes or lesions noted. Limitations: no limitations Course Vital Signs 05/22/19 15:02 Temperature 98.4 F Pulse Rate 102 H Respiratory 19 Rate Blood Pressure 154/91 O2 Sat by Pulse 98 Oximetry Medical Decision Making - Medical Decision Making Patient is a 29-year-old female presenting with UTI-type symptoms 4 days. Vital signs are stable. Urine shows lots of blood however patient is on her menstrual cycle. Patient also has bacteria in the urine. HCG is negative. P atient will be treated for a UTI. She be started on Keflex. He did receive Toradol for her low back pain. Urine culture is pending at this time. Patient stable for discharge and she is in agreement with this plan of care. Return parameters were discussed with the patient she verbalized understanding. - Lab Data Lab Results 05/22/19 05/22/19 Range/Units 15:15 15:25 Urine Color Dark Yellow Urine Appearance Clear (Clear) Urine pH 6.5 (5.0-8.0) Ur Specific [place] 1.030 (1.001-1.035) Urine Protein 1+ H (Negative) Urine Glucose (UA) Negative (Negative) Urine Ketones Negative (Negative) Urine Blood Moderate H (Negative) Urine Nitrite Negative (Negative) Urine Bilirubin Negative (Negative) Urine Urobilinogen 2.0 (<2.0) mg/dL Ur Leukocyte Esterase Small H (Negative) Urine RBC >182 H (0-5) /hpf Urine WBC 13 H (0-5) /hpf Ur Squamous Epith Cells 3 (0-4) /hpf Urine Bacteria Rare H (None) /hpf Urine Mucus Occasional H (None) /hpf Urine HCG, Qual Not Detected (Not Detectd) Disposition Clinical Impression: Urinary tract infection Disposition: HOME SELF-CARE Condition: Stable Instructions (If sedation given, give patient instructions): Urinary Tract Infection in Women (ED) Additional Instructions: Please return to the Emergency Department if symptoms worsen or any other concerns. Take antibiotics as prescribed. May continue with Azo at home. Take Motrin for discomfort. Prescriptions: Cephalexin [Keflex] 500 mg PO BID 5 Days #10 cap Is patient prescribed a controlled substance at d/c from ED?: No Referrals: Sal Ngo MD [Primary Care Provider] - 1-2 days
[2019-05-22] MEDS ORDERED: KETOROLAC 60 MG/2 ML VIAL IM STA (16:37)
== END 2019-05-22 16:52 | disposition home or self-care (01) ==
LOC: EC 14:51
DX: N39.0 Urinary tract infection, site not specified (principal); B96.89 Other specified bacterial agents as the cause of diseases classified elsewhere; Z91.040 Latex allergy status; Z87.891 Personal history of nicotine dependence
CPT/HCPCS: 81001; 81025; 87086; 96372; 99283; J1885